=== PATIENT | male | born 1945 | race Caucasian/White ===

== ENCOUNTER 2017-02-20 04:02 | Emergency (ER) | payer MEDICARE, OTHER ==
[~2017-02-20] VITALS: Ht 180.3 cm; Wt 111.1 kg
[~2017-02-20 04:02] MED LIST: ATORVASTATIN CA40 MG PO; BAYER CHEWABLE81 MG PO; CARVEDILOL12.5 MG PO; DIPHENHIST50 MG PO; EFFIENT10 MG PO; FISH OIL + VIT1 EACH PO; FLOMAX0.4 MG; FLOMAX0.4 MG PO; FUROSEMIDE 20 M20 M1 PO; LISINOPRIL5 MG PO; PLAVIX 75 MG TA75 M1 PO; POTASSIUM20 PO; PREDNISONE 10 M10 MG PO; TRILIPIX135 MG PO; ZOCOR40 MG PO
[2017-02-20] MEDS ORDERED: D3 DOTS2000 UNIT PO (04:18)
[2017-02-20 04:23] LABS: HEMATOCRIT 52.9 % (42.0-52.0); HEMOGLOBIN 17.7 gm/dL (14.0-18.0); MCH 30.9 pg (26.0-34.0); MCHC 33.4 g/dL (28.0-37.0); MCV 92.5 fL (80.0-100.0); MPV 7.9 fl. (7.2-11.1); NUCLEATED RBCS 0 /100WBC; PLATELET COUNT* 202 thou/uL (150-400); RBC 5.72 mil/uL (4.50-6.00); RDW-CV 13.3 % (10.5-14.5); WBC 15.8 thou/uL (4.0-11.0)
[2017-02-20 04:32] LABS: ANION GAP 11 mmol/L (7-16); BUN 42 mg/dL (7-18); CALCIUM 9.4 mg/dL (8.5-10.1); CHLORIDE 104 mmol/L (98-107); CO2 25 mmol/L (21-32); CREATININE 2.2 mg/dL (0.6-1.3); GLUCOSE 125 mg/dL (70-99); POTASSIUM 3.7 mmol/L (3.5-5.1); SODIUM 140 mmol/L (136-145)
[2017-02-20 04:39] LABS: ALKALINE PHOSPHATASE 59 U/L (46-116); LIPASE 181 U/L (73-393); SGOT 11 U/L (15-37); SGPT 16 U/L (30-65); TOTAL BILIRUBIN 0.7 mg/dL (<0.1-1.0); TOTAL PROTEIN 8.1 g/dL (6.4-8.2); TROPONIN-I LEVEL <0.06 ng/mL (<0.06)
[2017-02-20 06:13] LABS: ABSOLUTE EOSINOPHILS 0.5 thou/uL (0.0-0.7); ABSOLUTE LYMPHOCYTES 1.1 thou/uL (0.8-5.3); ABSOLUTE MONOCYTES 0.9 thou/uL (0.0-1.2); ABSOLUTE NEUTROPHILS 13.3 thou/uL (1.6-8.1); PLATELET ESTIMATE ADEQUATE
[2017-02-20] MEDS ORDERED: PEPCID20 MG PO (06:22)
[2017-02-20] MEDS ORDERED: ZOFRAN ODT4 MG PO (06:22)
[2017-02-20 06:33] VITALS: BP 157/79
--- NOTE | 2017-02-20 16:00 | EKG ---
[place] [address] ELECTROCARDIOGRAM REPORT Name: SELENA FRIEDMAN Room: [facility]#: [id number] Admission: 02/20/17 Attend Phys: Discharge: 02/20/17 Date of : 45 Report #: [id number] THIS REPORT FOR: //name// [facility] ED Test Date: 2017-02-20 Test Time: 04:34:08 Pat Name: SELENA FRIEDMAN Department: Room: Gender: Road Grader Operator: MACO Ortiz : 1945 Requested By: Sukhdeep Mcfarlane Order Number: [id number] MD: Flash Méndez Measurements Intervals [place] Rate: 98 P: 90 SC: 194 QRS: 37 QRSD: 92 T: 127 QT: 370 QTc: 473 Interpretive Statements Sinus rhythm Atrial premature complex Left atrial enlargement LVH with secondary repolarization abnormality Abnormal inferior Q waves Anterior infarct, old Baseline wander in lead(s) I,III,aVL Compared to ECG 09/02/2013 10:53:58 Atrial premature complex(es) now present Atrial abnormality now present Left ventricular hypertrophy now present Early repolarization now present Inferior Q waves now present Electronically Signed On 02-20-2017 15:59:58 CORPORATE SECURITIES RESEARCH ANALYST by Flash Méndez [email or web address] <ELECTRONICALLY SIGNED> By: Myranda Méndez MD, [facility] 02/20/17 1559 [id number] Myranda Méndez MD, [facility] /EPI
== END 2017-02-20 06:35 | disposition home or self-care (01) ==
LOC: M.ERS 04:02
PROVIDERS: Emergency Medicine Emergency Medical Services
DX: K52.9 Noninfective gastroenteritis and colitis, unspecified (principal); I10 Essential (primary) hypertension; E78.5 Hyperlipidemia, unspecified; Z90.89 Acquired absence of other organs; Z88.0 Allergy status to penicillin